=== PATIENT | female | born 1970 | race Caucasian/White ===

== ENCOUNTER 2016-05-14 02:35 | Emergency (ER) ==
[2016-05-14] MEDS ORDERED: NS 1,000 ML IV ONE (02:54)
[2016-05-14] MEDS ORDERED: ZOFRAN IV ONE (02:54)
--- NOTE | 2016-05-14 02:59 | PROVIDER DOCUMENTATION ---
HPI-General Adult - General Source: patient - History of Present Illness -Gen Adult Nature of Presenting Problems: 45 YOWF PRESENTS TO ED WITH C/O PT STATES SHE HAS HAD 8 EPISODES OF VOMITING SINCE 8:30. PT DENIES ANY FEVER. PT STATES NO DIARRHEA. PT STATES ABDOMINAL CRAMPING WITH VOMITING. Location of Pain/Injury: reports: abdomen Pain Radiation: reports: no radiation Quality of Pain: reports: aching, cramping Severity: reports: mild Onset/Duration: reports: 4-6 hours ago Timing: reports: still present Context/Activities at Onset: reports: light activity Modifying Factors: improves with: nothing Associated Symptoms: reports: nausea, vomiting Similar Symptoms Previously?: No Recently seen or treated by another doctor?: No <Willy Farrell - Last Filed: 05/14/16 02:54> <Teofilo Cobb - Last Filed: 05/14/16 04:05> - General Chief Complaint: Nausea/Vomiting Stated Complaint: N/V Time Seen by Provider: 05/14/16 02:46 Allergies/Adverse Reactions: Patient Allergies Allergy/AdvReac Type Severity Reaction Status Date / Time No Known Allergies Allergy Verified 05/14/16 02:43 Review of Systems - Adult - REVIEW OF SYSTEMS - ADULT Constitutional: denies: chills, fever Eyes: reports: no symptoms reported Ears, Nose, Mouth & Throat: reports: no symptoms reported Cardiovascular: denies: chest pain, palpitations, syncope Respiratory: denies: cough, shortness of breath, wheezing Gastrointestinal: reports: abdominal pain, nausea, vomiting. denies: diarrhea Genitourinary: reports: no symptoms reported Musculoskeletal: denies: back pain, neck pain Integumentary: reports: no symptoms reported Neurological: denies: dizziness/vertigo, headache/migraines, syncope Psychiatric: reports: no symptoms reported Endocrine: reports: no symptoms reported Hematologic/Lymphatic: reports: no symptoms reported Allergic/Immunologic: reports: no symptoms reported All Other Systems: Reviewed and Negative <Willy Farrell - Last Filed: 05/14/16 02:54> Past History - Adult - IMMUNIZATION STATUS Childhood Immunizations: See Nurse Assessment Flu Vaccine: See Nurse Assessment - FAMILY HISTORY Family History: ulcers, gallbladder disease - SOCIAL HISTORY Smoking: cigarettes, greater than 1 pack/day Provider spent 3-5 mins advising pt. on dangers of tobacco.: Discussed manners to quit use, and f/u contacts for add'l counseling. Substance Use: alcohol Alcohol Use Frequency: occasionally Number of drinks per typical drinking period:: 3-4 drinks Living Situation: family <Willy Farrell - Last Filed: 05/14/16 02:54> Physical Exam-General - CONSTITUTIONAL General Appearance: alert, mild distress - EYES Eyes: PERRL/EOMI, pink conjunctivae - HEAD, EARS, NOSE, MOUTH & THROAT HENMT: normocephalic/atraumatic, moist mucous membranes - NECK Neck: non-tender, full range of motion, supple - RESPIRATORY Respiratory: chest non-tender, lungs clear, normal breath sounds - CARDIOVASCULAR Cardiovascular: normal peripheral pulses, regular rate, rhythm - GASTROINTESTINAL (ABDOMEN) Abdominal Exam: normal bowel sounds, soft, tenderness - LYMPHATIC Lymphatic: no adenopathy - MUSCULOSKELETAL Back Exam: normal inspection, no CVA tenderness, no vertebral tenderness Extremity: normal range of motion, non-tender - SKIN Integumentary: normal color, normal turgor, warm/dry - NEUROLOGIC Neurologic: grossly normal - PSYCHIATRIC Psych/Mental Status: oriented x 3 <Willy Farrell - Last Filed: 05/14/16 02:54> Progress - PLAN OF CARE/RESULTS Progress/Plan/Lab Results: Laboratory Tests 05/14/16 05/14/16 05/14/16 03:00 03:00 03:00 WBC 12.53 H RBC 4.52 Hgb 13.8 Hct 39.8 MCV 88.1 MCH 30.5 MCHC 34.7 RDW Std Deviation 12.7 Plt Count 187 MPV 9.6 Immature Gran % (Auto) 0.2 Neut % (Auto) 82.4 H Lymph % (Auto) 12.5 L [place] % (Auto) 4.6 Eos % (Auto) 0.2 Baso % (Auto) 0.1 Immature Gran # (Auto) 0.02 Neut # (Auto) 10.33 H Lymph # (Auto) 1.56 [place] # (Auto) 0.58 Eos # (Auto) 0.03 Baso # (Auto) 0.01 Sodium 131 L Potassium 3.8 Chloride 96 L Carbon Dioxide 21 L Anion Gap 13 BUN 13 Creatinine 0.8 Estimated GFR/1.73 m2 > 60 BUN/Creatinine Ratio 16 Glucose 129 H Calculated Osmolality 264 Calcium 9.2 Total Bilirubin 0.40 AST 16 ALT 13 Alkaline Phosphatase 79 Total Protein 7.2 Albumin 4.5 Globulin 3.0 Albumin/Globulin Ratio 2.0 Lipase 30 Urine Source CLEAN CATCH Urine Color YELLOW Urine Clarity CLEAR Urine pH 6.0 Ur Specific [place] 1.020 Urine Protein NEGATIVE Urine Ketones NEGATIVE Urine Blood 1+ A Urine Nitrite NEGATIVE Urine Bilirubin NEGATIVE Urine Urobilinogen NORMAL Urine Microscopic RBC <10 Urine WBC NEGATIVE Urine Microscopic WBC <10 Ur Epithelial Cells <10 Urine Bacteria 3+ Urine Glucose NEGATIVE Orders Category Date Time Status CBC WITH ELECTRONIC DIFF [HEME] Stat Lab 05/14/16 03:00 Completed CMP [COMPREHENSIVE METABOLIC PANEL] [CHEM] Stat Lab 05/14/16 03:00 Completed LIPASE [CHEM] Stat Lab 05/14/16 03:[address] W/POSS RFLX CULT [URINALYSIS] Stat Lab 05/14/16 03:00 Completed URINE CULTURE [RM] Routine Lab 05/14/16 03:31 Ordered 0.9% Sodium Chloride Inj [Ns] 1,000 ml Med 05/14/16 02:54 Discontinued IV 999 mls/hr Morphine Med 05/14/16 03:16 Discontinued 4 mg IV NOW ONE Ondansetron [Zofran] Med 05/14/16 02:54 Discontinued 8 mg IV NOW ONE Promethazine [Phenergan] Med 05/14/16 03:16 Discontinued 25 mg IV NOW ONE Sodium Chloride 0.9% Med 05/14/16 03:16 Discontinued 10 ml INJ NOW ONE Vital Signs Temp Pulse Resp BP Pulse Ox 05/14/16 02:38 97.6 F 60 20 133/63 96 No Known Allergies Allergy (Verified 05/14/16 02:43) Bismuth Subsalicylate Chew Tab [Pepto-Bismol Chew Tab] 262 mg PO Q6HR #120 tablet 08/17/15 Laboratory 05/14/16 05/14/16 05/14/16 03:00 03:00 03:00 WBC 12.53 H RBC 4.52 Hgb 13.8 Hct 39.8 MCV 88.1 MCH 30.5 MCHC 34.7 RDW Std Deviation 12.7 Plt Count 187 MPV 9.6 Immature Gran % (Auto) 0.2 Neut % (Auto) 82.4 H Lymph % (Auto) 12.5 L [place] % (Auto) 4.6 Eos % (Auto) 0.2 Baso % (Auto) 0.1 Immature Gran # (Auto) 0.02 Neut # (Auto) 10.33 H Lymph # (Auto) 1.56 [place] # (Auto) 0.58 Eos # (Auto) 0.03 Baso # (Auto) 0.01 Sodium 131 L Potassium 3.8 Chloride 96 L Carbon Dioxide 21 L Anion Gap 13 BUN 13 Creatinine 0.8 Estimated GFR/1.73 m2 > 60 BUN/Creatinine Ratio 16 Glucose 129 H Calculated Osmolality 264 Calcium 9.2 Total Bilirubin 0.40 AST 16 ALT 13 Alkaline Phosphatase 79 Total Protein 7.2 Albumin 4.5 Globulin 3.0 Albumin/Globulin Ratio 2.0 Lipase 30 Urine Source CLEAN CATCH Urine Color YELLOW Urine Clarity CLEAR Urine pH 6.0 Ur Specific [place] 1.020 Urine Protein NEGATIVE Urine Ketones NEGATIVE Urine Blood 1+ A Urine Nitrite NEGATIVE Urine Bilirubin NEGATIVE Urine Urobilinogen NORMAL Urine Microscopic RBC <10 Urine WBC NEGATIVE Urine Microscopic WBC <10 Ur Epithelial Cells <10 Urine Bacteria 3+ Urine Glucose NEGATIVE - REASSESSMENT Reassessment #1 Time Reassessed: 04:04 (pt able to drink without nausea or vomiting) Status: improving <Teofilo Cobb - Last Filed: 05/14/16 04:05> Departure <Willy Farrell - Last Filed: 05/14/16 02:54> - Departure Time of Disposition Order: 04:04 Certified Medical Emergency: Emergent <Teofilo Cobb - Last Filed: 05/14/16 04:05> - Departure DIAGNOSIS: Vomiting Qualifiers: Vomiting type: bilious vomiting Nausea presence: with nausea Qualified Code(s) : R11.14 - Bilious vomiting Disposition: HOME 01 Condition: Fair Additional Instructions: ED Follow Up Instructions: You have been treated by a care provider in the Emergency Department. These instructions are being provided to you so you can have an understanding of how to care for yourself upon discharge. Upon discharge from the Emergency Department, you are responsible for making arrangements for follow-up care by a physician of your choice. Take all prescribed medications as directed. Return to the Emergency Department immediately for any new or worsening symptoms. You may call the Physician Referral phone number at [phone] to obtain a list of Physicians who are taking new patients. Prescriptions: Promethazine [Phenergan] 25 mg PO Q6H PRN PRN #20 tablet PRN Reason: Nausea And Vomiting Attestation - Scribe Verification/Attestation Scribe:: Willy Farrell Acting as Scribe for:: Teofilo Cobb Scribe documention review:: This chart was documented by a scribe and accurately reflects the service the provider performed and the decisions made by the provider. <Willy Farrell - Last Filed: 05/14/16 02:54> Physician Attestation
[2016-05-14 03:04] LABS: MANUAL DIFF NEEDED? NO
[2016-05-14 03:11] LABS: BASO% 0.1 % (0.0-0.8); EOS# 0.03 X1000 (0.0-0.7); EOS% 0.2 % (0.0-10.0); HEMATOCRIT 39.8 % (37.0-47.0); HEMOGLOBIN 13.8 g/dL (12.0-16.0); IMM GRAN# 0.02 X1000 (0.0-0.04); IMM GRAN% 0.2 % (0.0-0.5); LYMPH# 1.56 X1000 (1.2-3.4); LYMPH% 12.5 % (20.5-51.1); MCH 30.5 PG (27-31); MCHC 34.7 g/dL (33-37); MCV 88.1 FL (81-99); MONO# 0.58 X1000 (0.11-0.59); MONO% 4.6 % (1.7-9.3); MPV 9.6 FL (7.4-10.4); NEUT% 82.4 % (42.2-75.2); PLT 187 X1000 (130-400); RBC 4.52 XMIL (4.2-5.4)
[2016-05-14] MEDS ORDERED: PHENERGAN IV ONE (03:16)
[2016-05-14] MEDS ORDERED: MORPHINE IV ONE (03:16)
[2016-05-14] MEDS ORDERED: SODIUM CHLORIDE 0.9% INJ ONE (03:16)
[2016-05-14 03:17] LABS: URINE SOURCE CLEAN CATCH
[2016-05-14 03:23] LABS: BILIRUBIN URINE NEGATIVE (NEGATIVE); BLOOD URINE 1+ (NEGATIVE); CLARITY CLEAR (CLEAR); COLOR YELLOW; GLUCOSE URINE NEGATIVE (NEGATIVE); LEUKOCYTES URINE NEGATIVE (NEGATIVE); NITRITE URINE NEGATIVE (NEGATIVE); PROTEIN URINE NEGATIVE (NEGATIVE); UROBILINOGEN URINE NORMAL
[2016-05-14 03:31] LABS: URINE CULTURE PL NEEDED? YES; URINE EPITHELIAL CELLS <10 /HPF (<10); URINE RBC <10 /HPF (<10); URINE WBC <10 /HPF (<10)
[2016-05-14 03:36] LABS: AGAP 13; ALBUMIN 4.5 g/dL (3.5-5.0); ALKALINE PHOSPHATASE 79 U/L (32-104); BUN 13 mg/dL (8-22); CALCIUM 9.2 mg/dL (8.8-10.2); CHLORIDE 96 mmol/L (98-107); COSMO 264; GOT 16 U/L (10-30); GPT 13 U/L (10-36); LIPASE 30 U/L (13-60); POTASSIUM 3.8 mmol/L (3.5-5.1); SODIUM 131 mmol/L (136-145); TCO2 21 mmol/L (25-35); TOTAL PROTEIN 7.2 g/dL (6.3-8.3)
[2016-05-14 04:16] VITALS: BP 120/064
== END 2016-05-14 04:15 | disposition home or self-care (01) ==
LOC: P.ED 02:35
DX: R11.14 Bilious vomiting (principal); R11.2 Nausea with vomiting, unspecified; R10.9 Unspecified abdominal pain; R10.819 Abdominal tenderness, unspecified site; F17.210 Nicotine dependence, cigarettes, uncomplicated; Z71.6 Tobacco abuse counseling
CPT/HCPCS: 80053; 81001; 83690; 85025; 87088; 96361; 96374; 96375; J2270; J2405; J2550; J7030